=== PATIENT | female | born 1990 | race Two or more races ===

== ENCOUNTER 2018-07-09 02:21 | Emergency (ER) | payer OTHER ==
[~2018-07-09] VITALS: Ht 165.1 cm; Wt 68.0 kg
[2018-07-09 02:33] VITALS: BP 134/117
[2018-07-09 02:46] LABS: BASOPHILS % (AUTO) 1.1 % (0.0-2.0); EOSINOPHILS % (AUTO) 3.9 % (0.0-3.0); HEMATOCRIT 32.3 % (37.0-47.0); LYMPHOCYTES % (AUTO) 53.9 % (20.0-45.0); MEAN CORPUSCULAR VOLUME 88 FL (80-99); MONOCYTES % (AUTO) 7.8 % (1.0-10.0); NEUTROPHILS % (AUTO) 33.4 % (45.0-75.0); PLATELET COUNT 328 K/UL (150-450); RED BLOOD COUNT 3.68 M/UL (4.20-5.40); RED CELL DISTRIBUTION WIDTH 10.9 % (11.6-14.8); WHITE BLOOD COUNT 11.5 K/UL (4.8-10.8)
[2018-07-09 02:51] LABS: ANION GAP 10 mmol/L (5-15); BLOOD UREA NITROGEN 11 mg/dL (7-18); CALCIUM 8.3 MG/DL (8.5-10.1); CARBON DIOXIDE 25 MMOL/L (21-32); CHLORIDE 105 MMOL/L (98-107); POTASSIUM 3.2 MMOL/L (3.5-5.1); SODIUM 140 MMOL/L (136-145)
--- NOTE | 2018-07-09 02:58 | Emergency Room Report ---
History of Present Illness General Chief Complaint: Nosebleed Source: Patient, Family Member, EMS Present Illness HPI Is a 28-year-old female brought in by EMS for nosebleed. She is status post one week from sinus surgery with septoplasty and submucosal resection of the turbinates. She was doing well until just prior to arrival. She woke up choking and had blood pouring out of her nose and mouth. This occurred about 20 minutes prior to arrival. On arrival patient was in shock with tachycardia, heart rate 130s, hypotensive with systolic in the 70s and she was diaphoretic. Still has bleeding. Bleeding was significant. She soaked up a couple towels. Nauseous from the swallowed blood. No fever chills but no trauma. No nose picking or blowing her nose. Allergies: Coded Allergies: No Known Allergies (Unverified , 07/09/18) Patient History Past Medical History: see triage record, old chart reviewed Past Surgical History: other Pertinent Family History: none Social History: Denies: smoking Last Menstrual Period: unknown Now: No Immunizations: other Reviewed Nursing Documentation: PMH: Agreed; PSxH: Agreed Nursing Documentation-PMH Past Medical History: No Stated History Review of Systems Eye: Denies: eye pain, blurred vision ENT: Reports: other - nosebleed; Denies: ear pain, nose congestion, throat swelling Respiratory: Denies: cough, shortness of breath Cardiovascular: Denies: chest pain, palpitations Gastrointestinal: Denies: abdominal pain, diarrhea, nausea, vomiting Musculoskeletal: Denies: back pain, joint pain Skin: Denies: rash Neurological: Denies: headache, numbness Endocrine: Denies: increased thirst, increased urine Hematologic/Lymphatic: Denies: easy bruising All Other Systems: negative except mentioned in HPI Physical Exam Vital Signs Date Time Temp Pulse Resp B/P (MAP) Pulse Ox O2 Delivery O2 Flow Rate FiO2 07/09/18 02:19 98.0 123 18 134/117 100 Room Air 98.1 vitals showed blood pressure with systolic in the 80s.. Tachycardic Sp02 EP Interpretation: reviewed, normal General Appearance: alert, moderate distress Head: normocephalic, atraumatic Eyes: bilateral eye PERRL, bilateral eye EOMI ENT: hearing grossly normal, normal pharynx, other - There is oozing of blood bilaterally. There is evidence of posterior bleed to the pharynx. Neck: full range of motion, supple, no meningismus Respiratory: chest non-tender, lungs clear, normal breath sounds Cardiovascular #1: regular rate, rhythm, no murmur Gastrointestinal: normal bowel sounds, non tender, no mass, no organomegaly, no bruit, non-distended Musculoskeletal: back normal, gait/station normal, normal range of motion Psychiatric: mood/affect normal Skin: warm/dry Procedures Additional Procedure Procedure Narrative Procedure: Nasal packing Indication: Epistaxis Description: Using a Loza suction catheter, I suction the blood and clot. Bleeding appeared to slow down. I then put in surgicel b/l. Bleeding controlled. There is no bleeding in the oropharynx. She tolerated procedure without a problem. Medical Decision Making Diagnostic Impression: Primary Impression: Severe epistaxis Additional Impressions: Post-op bleeding Qualified Codes: L76.22 - Postprocedural hemorrhage of skin and subcutaneous tissue following other procedure Anemia Qualified Codes: D64.9 - Anemia, unspecified ER Course Patient presents with severe epistaxis. She lost a significant amount of blood. She was diaphoretic and tachycardic and hypotensive. Blood pressure improved after IV fluid. Heart rate normalized. Bleeding controlled. I suspect that a scab fell off and there was some arterial bleeding. This spasm down and no longer bleeding. I paged Dr.Harvey Palma, ENT. So far, no call back. Patient has been stable. No bleeding for several hours now. Again, I called Dr. Palma. Left a message at the office. Also, Jonna, his shampoo assistant, at [phone]. Left a message on her phone. Patient is a Jehovah witness so she cannot get blood products. We'll put her on iron. She did drop 2 g of hemoglobin. Elevated white count is probably a stress response. No evidence of any infection. We'll discharge patient home with close follow-up with her ENT doctor later this morning. Last Vital Signs Date Time Temp Pulse Resp B/P (MAP) Pulse Ox O2 Delivery O2 Flow Rate FiO2 07/09/18 02:19 98.0 123 18 134/117 100 Room Air 98.1 Status: improved Disposition: HOME, SELF-CARE Condition: Stable Scripts Ferrous Sulfate* (FERROUS SULFATE*) 325 Mg Tablet 325 MG ORAL TWICE A DAY, #60 TAB 0 Refills Prov: COCO LAKE M.D. 07/09/18 Referrals: NOT CHOSEN IPA/,REFERRING (PCP) Patient Instructions: Nosebleed, [id number] Additional Instructions: Call Dr. Palma and/or Jonna later this morning. Continue with postsurgical instruction. Return if symptom worsen or more bleeding. C[place] LAKE M.D. Jul 09, 2018 02:58
[2018-07-09 03:01] VITALS: BP 93/61
[2018-07-09 03:10] VITALS: BP 102/64
[2018-07-09 05:21] VITALS: BP 96/60
[2018-07-09 05:24] LABS: BASOPHILS % (AUTO) 0.5 % (0.0-2.0); EOSINOPHILS % (AUTO) 0.8 % (0.0-3.0); HEMATOCRIT 26.2 % (37.0-47.0); HEMOGLOBIN 8.9 G/DL (12.0-16.0); LYMPHOCYTES % (AUTO) 10.3 % (20.0-45.0); MEAN CORPUSCULAR VOLUME 88 FL (80-99); MONOCYTES % (AUTO) 4.3 % (1.0-10.0); NEUTROPHILS % (AUTO) 84.1 % (45.0-75.0); PLATELET COUNT 219 K/UL (150-450); RED BLOOD COUNT 2.98 M/UL (4.20-5.40); RED CELL DISTRIBUTION WIDTH 10.9 % (11.6-14.8); WHITE BLOOD COUNT 16.5 K/UL (4.8-10.8)
[2018-07-09] MEDS ORDERED: FERROUS SULFAT325 MG ORAL (05:55)
[2018-07-09] MEDS ORDERED: Norco 5mg/325mg tab ORAL ONE (06:00)
[2018-07-09 06:40] VITALS: BP 108/64
== END 2018-07-09 06:43 | disposition home or self-care (01) ==
LOC: EDBD 02:21 → EMR 02:50
DX: L76.22 Postprocedural hemorrhage of skin and subcutaneous tissue following other procedure (principal); R04.0 Epistaxis; D64.9 Anemia, unspecified; I95.9 Hypotension, unspecified; R00.0 Tachycardia, unspecified
CPT/HCPCS: 30901; 36415; 80048; 85025; 85610; 85730; 86850; 86900; 86901; 96361; 96374; 99284; J2405

== ENCOUNTER 2018-07-15 04:14 | Emergency (ER) | payer OTHER ==
[~2018-07-15] VITALS: Ht 152.4 cm; Wt 56.7 kg
[~2018-07-15 04:14] MED LIST: FERROUS SULFAT325 MG ORAL
[2018-07-15] MEDS ORDERED: Lidocaine 1% 10mg/ml/Epi 0.005mg/ml 30ml vial INJ ONE ×2 (04:39→04:45)
[2018-07-15 04:40] LABS: BASOPHILS % (AUTO) 1.7 % (0.0-2.0); EOSINOPHILS % (AUTO) 2.9 % (0.0-3.0); HEMOGLOBIN 8.2 G/DL (12.0-16.0); LYMPHOCYTES % (AUTO) 52.1 % (20.0-45.0); MEAN CORPUSCULAR VOLUME 90 FL (80-99); MONOCYTES % (AUTO) 7.4 % (1.0-10.0); NEUTROPHILS % (AUTO) 35.9 % (45.0-75.0); PLATELET COUNT 410 K/UL (150-450); RED BLOOD COUNT 2.67 M/UL (4.20-5.40); RED CELL DISTRIBUTION WIDTH 13.4 % (11.6-14.8); WHITE BLOOD COUNT 13.8 K/UL (4.8-10.8)
[2018-07-15 04:49] VITALS: BP 101/49
[2018-07-15 04:54] LABS: ANION GAP 10 mmol/L (5-15); BLOOD UREA NITROGEN 10 mg/dL (7-18); CALCIUM 9.2 MG/DL (8.5-10.1); CARBON DIOXIDE 20 MMOL/L (21-32); CHLORIDE 103 MMOL/L (98-107); CREATININE 0.8 MG/DL (0.55-1.30); POTASSIUM 3.8 MMOL/L (3.5-5.1); SODIUM 133 MMOL/L (136-145)
--- NOTE | 2018-07-15 05:14 | Emergency Room Report ---
History of Present Illness General Chief Complaint: Nosebleed Source: Family Member, Medical Record, EMS Present Illness HPI This is a 28-year-old female who had nasal surgery done 2 weeks ago. I saw her last week for acute bleeding. Drop of her hemoglobin of 11 to hemoglobin of 8.9. I suction the blood and packed the nose with Surgicel. She was seen the same day at her ENT doctor's office. Her , the doctor said there is no active bleeding. Patient was discharged home with reassurance. She presents tonight with acute bleeding. Came on all of a sudden and she was choking on her blood. She had large amount of blood per EMS and family. At home her blood pressure was running systolic in the 70s and 80. She normally runs low end of normal on her blood pressure. When she came in she was diaphoretic and tachycardic and very hypotensive. She was not responsive. Allergies: Coded Allergies: No Known Allergies (Unverified , 07/09/18) Patient History Past Medical History: see triage record, old chart reviewed Past Surgical History: other Pertinent Family History: none Social History: Denies: smoking Last Menstrual Period: unk Now: No Immunizations: other Reviewed Nursing Documentation: PMH: Agreed; PSxH: Agreed Review of Systems Eye: Denies: eye pain, blurred vision ENT: Reports: other - nosebleed; Denies: ear pain, nose congestion, throat swelling Respiratory: Denies: cough, shortness of breath Cardiovascular: Denies: chest pain, palpitations Gastrointestinal: Denies: abdominal pain, diarrhea, nausea, vomiting Musculoskeletal: Denies: back pain, joint pain Skin: Denies: rash Neurological: Denies: headache, numbness Endocrine: Denies: increased thirst, increased urine Hematologic/Lymphatic: Denies: easy bruising All Other Systems: negative except mentioned in HPI Physical Exam Vital Signs Date Time Temp Pulse Resp B/P (MAP) Pulse Ox O2 Delivery O2 Flow Rate FiO2 07/15/18 04:23 96.9 114 28 45/29 91 Room Air 97.0 tachycardic, hypotensive Sp02 EP Interpretation: reviewed, normal General Appearance: moderate distress, other - pale and diaphoretic Head: normocephalic, atraumatic Eyes: bilateral eye PERRL, bilateral eye EOMI ENT: hearing grossly normal, normal pharynx Neck: full range of motion, supple, no meningismus Respiratory: chest non-tender, lungs clear, normal breath sounds Cardiovascular #1: regular rate, rhythm, no murmur Gastrointestinal: normal bowel sounds, non tender, no mass, no organomegaly, no bruit, non-distended Musculoskeletal: back normal, normal range of motion Neurologic: grossly normal Skin: warm/dry Procedures Additional Procedure Procedure Narrative Procedure: Epistaxis control Indication: Epistaxis Description: There was no active bleeding on visualization. Instructions small clots at the naris opening. I went ahead and put Surgicel in the left nostril. Patient tolerated procedure without a problem. Medical Decision Making Diagnostic Impression: Primary Impression: Epistaxis Additional Impression: Anemia Qualified Codes: D64.9 - Anemia, unspecified ER Course Patient presents with epistaxis. It appears stopped now. I had the called Dr. Patton, ENT. I spoke with him on the phone ([phone]). He said that when she was in the office he didn't see any active bleeding. He is willing to see her first thing in the morning in the office. He will scope her again. He may admit her to [facility] so she can undergo anesthesia. This way he can scope with for the back to see a source of bleeding. Patient received 2 L of fluid and blood pressures responsive. She still shivering and tachycardic. I will observe her for several hours and repeat hemoglobin. Lab Results Impression labs with anemia Last Vital Signs Date Time Temp Pulse Resp B/P (MAP) Pulse Ox O2 Delivery O2 Flow Rate FiO2 07/15/18 04:49 97.8 130 22 101/49 100 Room Air 97.8 Status: improved Disposition: HOME, SELF-CARE Condition: Stable Referrals: NON PHYSICIAN (PCP) Patient Instructions: Nosebleed, [id number] Additional Instructions: Go directly to Dr. Dixon's office. Return if symptom worsen. C[place] M.D. Jul 15, 2018 05:14
[2018-07-15 05:33] VITALS: BP 103/61
[2018-07-15] MEDS ORDERED: LORazepam Inj 2mg/ml 1ml IV ONE (06:30)
[2018-07-15 07:09] VITALS: BP 72/37
[2018-07-15 07:40] VITALS: BP 101/52
--- NOTE | 2018-07-15 09:02 | Emergency Room Report ---
Physical Exam Vital Signs Date Time Temp Pulse Resp B/P (MAP) Pulse Ox O2 Delivery O2 Flow Rate FiO2 07/15/18 04:23 96.9 114 28 45/29 91 Room Air 97.0 Medical Decision Making Diagnostic Impression: Primary Impression: Epistaxis Additional Impression: Anemia Qualified Codes: D64.9 - Anemia, unspecified ER Course I assumed care of patient went I came on duty at 630 am. The patient had further episodes vomiting mostly bloody fluid over the next hour. Sometimes it was not throwing up but clearing throat. There was small amounts of dripping fresh blood from the nose, but only a little. During this time the patient HR from 100's to 130's to 150's. SBP generally 70's, was as high as 100 after ~two liters LR. However patient continued to be diaphoretic and tachycardia worsening. We have no ENT at [place]. I attempted several things simultaneously right away. I spoke with pt.'s ENT Dr. Patton who accepted patient to [facility] where he would see her in ED then OR. I spoke with Dr. Corrigan at [facility] ED to alert to higher level of care necessary. I spoke with nursing whipped topping supervisor at [facility] who would not assist really even with answering questions such as to whom would I speak about effecting transfer. I asked ballast inspector Miladis to call [facility] for higher level of care transfer. I spoke with the at length as well as he was considering leaving [facility] to go to [facility]. I asked ballast inspector Miladis to call [facility] to see if we could accomplish a transfer for higher level of care. While this was happening I was re-evaluating patient and in my professional opinion she was at higher and higher risk of hemorrhaging so much as to be life-threatening. This is a [employer] patient who is refusing blood which is what she desperately needed at this time. I spoke with my medical officer quickly who agreed that if I think necessary I can call paramedics ([phone]) for higher level of care. I could not obtain a regular transfer as quickly as I believe the patient needed so I called paramedics. Delay on transport otherwise. Firefighters arrive and instead of [facility], where her surgeon is, I decided to send to [facility] as I thought the risk of 30 minutes in transport was too great and [facility] is ~5 minutes away. I considered intubating prior to leaving but really wanted her to get to [facility] as quick as possible and chance of high risk intubation with bleeding and probable/possible delay/ worsening. (There is no back-up here at [place].) I felt intubation could delay us up to ~ten minutes and possibly more. And her immediate problem was not aiway ; her problem is bleeding and she needed emergency transfusion (refused) and surgical attention for ENT bleeding source. She was very tachycardic but always 100% pulse ox. And she was fatigued but she was oriented and able to communicate. So I believe delaying transfer for intubation would be a mistake. As soon as patient pulled away in ambulance I called [facility] ED and spoke with their ED doctor to tell them all that I knew and patient was pulling up to them right as I spoke with her. It was not possible to speak with [facility] transfer center sooner and I was on hold with them for ten minutes before I got their ED physician on the line. I was calling [phone] and [phone]. My intention was to call their feed house supervisor/transfer center after I spoke with [facility] ED doctor because it was more important to speak with ED doctor immediately. Pt. unstable for transfer but needed immediate higher level of care requiring sole layer immediate transport. Two large IV sites and LR hanging , telemetry monitoring in place. Last Vital Signs Date Time Temp Pulse Resp B/P (MAP) Pulse Ox O2 Delivery O2 Flow Rate FiO2 07/15/18 07:09 97.8 163 25 72/37 100 Room Air 97.8 Status: worsened Disposition: XFER SHT-TRM HOSP Condition: Stable Referrals: NON PHYSICIAN (PCP) Patient Instructions: Nosebleed, [id number] Additional Instructions: Go directly to Dr. Dixon's office. Return if symptom worsen. Kwan Hayden M.D. Jul 15, 2018 09:01
== END 2018-07-15 07:50 | disposition short-term general hospital (02) ==
LOC: EDUNIT# 04:14 → EDBD 04:14 → EMR 04:31
DX: R04.0 Epistaxis (principal); D64.9 Anemia, unspecified
CPT/HCPCS: 36415; 80048; 85025; 96361; 96374; 96375; 99284; J2405